=== PATIENT | male | born 1980 | race Caucasian/White ===

== ENCOUNTER 2020-08-01 17:32 | Emergency (ER) | payer OTHER, BC, SELFPAY ==
[2020-08-01 18:48] VITALS: BP 120/66; PULSE 78; RESP 18; TEMP 36.2; O2SAT 100
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
[2020-08-01] MEDS: SILVER SULFADIAZINE 1% CR 50 GM JAR (*BKC) 1 APPLIC TOPICAL (20:08)
[2020-08-01 20:42] VITALS: BP 146/93; PULSE 85; RESP 16; TEMP 36.9; O2SAT 100
== END 2020-08-01 20:44 | disposition home or self-care (01) ==
PROVIDERS: Emergency Provider Emergency Medicine; PCP Nurse Practitioner Family
DX: T54.3X1A Toxic effect of corrosive alkalis and alkali-like substances, accidental (unintentional), initial encounter (principal); T23.672A Corrosion of second degree of left wrist, initial encounter; T23.671A Corrosion of second degree of right wrist, initial encounter; T32.0 Corrosions involving less than 10% of body surface
CPT/HCPCS: 16020; 99283; A9270

== ENCOUNTER 2021-07-05 11:37 | Outpatient (CLI) | payer BC, SELFPAY ==
--- NOTE | ~2021-07-05 | XR_ITS ---
EXAMINATION: XR chest 2V 07/05/2021 12:15 INDICATION: Cough and shortness of breath PROCEDURE: 2 view chest COMPARISON: 05/18/2007 FINDINGS: The lungs are clear. The cardiomediastinal silhouette is within normal limits. There are no pleural effusions. There is no pneumothorax suspected. IMPRESSION: 1: NO ACUTE CARDIOPULMONARY DISEASE. Reviewed, dictated and finalized at location A.
== END 2021-07-05 11:38 ==
PROVIDERS: PCP Nurse Practitioner Family; Visit Provider Nurse Practitioner Family
DX: R05.9 Cough, unspecified (principal); R06.02 Shortness of breath
CPT/HCPCS: 71046

== ENCOUNTER 2024-08-12 08:22 | Outpatient (CLI) | payer BC, SELFPAY ==
--- NOTE | ~2024-08-12 | CT_ITS ---
EXAMINATION: CT abdomen pelvis wo/w con DATE: 08/12/2024 09:33 INDICATION: Hematuria. Left flank pain. TECHNIQUE: Computed tomography (CT) of the abdomen and pelvis was performed without and with intraven ous contrast using a total of 130 mL Omnipaque-350 intravenous contrast with a double-bolus technique for simultaneous opacification of the renal parenchyma and renal collecting system. Automated exposu re control and iterative reconstruction technique were employed. The dose-length product was 2807.84 mGy-cm. COMPARISON: CT abdomen 05/19/2007 FINDINGS: The visualized portions of the lung bases demonstrate minimal atelectasis. No pleural effusion. The h eart size is normal. No pericardial effusion. There is a 5 mm cyst in the liver. There are changes of cholecystectomy. The spleen, pancreas, and adrenal glands are normal. There are cysts in the kidneys measuring up to 8 mm on the left. There is a 2 mm stone in right kidney. There is a 3 mm stone in di stal left ureter. There is a 2 mm stone in left kidney. The ureters are well opacified by contrast. T he bladder is normal. The prostate is moderately enlarged. There are no dilated loops of bowel. The a ppendix is normal. There are no pathologically enlarged lymph nodes. There is no free intraperitoneal fluid. There is lumbar levoscoliosis and mild spondylosis. There are chronic bilateral L5 pars defec ts. There is 4 mm anterolisthesis of L5 on S1. There is mild chronic anterior wedging of multiple tho racic vertebral bodies. IMPRESSION: 1. 3 mm stone in distal left ureter. No hydronephrosis. 2. Bilateral nonobstructing kidney stones. Reviewed, dictated and finalized at location A. [employer]
[2024-08-12 09:09] LABS: Estimated Glomerular Filt Rate 55
[2024-08-12 10:23] LABS: Basophils Absolute Auto 0.2 K/mm3 (0.0-0.1); Eosinophils Absolute Auto 0.2 K/mm3 (0-0.3); Hematocrit 39.9 % (42.0-52.0); Hemoglobin 14.1 g/dL (14.0-18.0); Immature Granulocyte Absolute 0.05 K/mm3 (0.00-0.031); Immature Granulocyte Percent A 0.6 % (0-0.5); Lymphocytes Absolute Auto 1.93 K/mm3 (0.9-3.2); Lymphocytes Percent Auto 23.8 % (18.3-44.2); Mean Corpuscular HGB Conc 35.3 g/dl (32-36); Mean Corpuscular Hemoglobin 30.5 pg (26-34); Mean Corpuscular Volume 86.2 fl (80-100); Mean Platelet Volume 9.9 fl (7.4-10.4); Monocytes Absolute Auto 0.6 K/mm3 (0.1-0.6); Monocytes Percent Auto 7.3 % (2.6-8.5); Neutrophils Absolute Auto 5.1 K/mm3 (1.3-6.7); Neutrophils Percent Auto 63.3 % (45.5-73.1); Platelet Count Result 316 k/mm3 (150-375); Red Blood Count 4.63 M/mm3 (4.6-6.20); Red Cell Distribution Width 12.2 % (11.5-14.5); White Blood Count 8.1 K/mm3 (4.5-10.0)
[2024-08-12 10:33] LABS: Alanine Aminotransferase 22 U/L (6-50); Albumin Level 4.5 g/dL (3.5-5.1); Alkaline Phosphatase 80 U/L (38-126); Anion Gap 12 mmol/L (4-12); Aspartate Amino Transferase 28 U/L (17-59); Bilirubin,Total 0.3 mg/dL (0.2-1.3); Blood Urea Nitrogen 19 mg/dL (9-20); Calcium 9.8 mg/dL (8.4-10.2); Carbon Dioxide 26 mmol/L (22-30); Chloride 100 mmol/L (98-107); Cholesterol 208 mg/dL (0-200); Estimated Glomerular Filt Rate 60; Glucose 101 mg/dL (65-110); HDL Direct 36 mg/dL; Potassium 3.6 mmol/L (3.4-5.0); Sodium 138 mmol/L (137-145); Triglycerides 301 mg/dL (<150); Uric Acid 5.8 mg/dL (3.5-8.5)
[2024-08-12 10:37] LABS: Hemoglobin A1C 5.3 % (<5.7)
[2024-08-12 10:44] LABS: LDL Cholesterol Direct 113 mg/dL
[2024-08-12 11:03] LABS: Prostate Specific Antigen 1.1 ng/mL (< OR = 4.0)
[2024-08-12 11:39] LABS: Folic Acid > 20.0 ng/mL (2.76->20)
[2024-08-12 13:33] LABS: Vitamin D 25 Hydroxy 49.4 ng/mL
[2024-08-12 13:46] LABS: Thyroid Stimulating Hormone Reflex 0.868 uIU/mL (0.465-4.68)
== END 2024-08-12 08:23 | disposition home or self-care (01) ==
PROVIDERS: PCP Nurse Practitioner Family; Visit Provider Nurse Practitioner Family
DX: N20.1 Calculus of ureter (principal); N20.0 Calculus of kidney; E66.811 Obesity, class 1; E66.09 Other obesity due to excess calories; Z68.33 Body mass index [BMI] 33.0-33.9, adult; E55.9 Vitamin D deficiency, unspecified; Z12.5 Encounter for screening for malignant neoplasm of prostate; I10 Essential (primary) hypertension; F41.1 Generalized anxiety disorder
CPT/HCPCS: 36415; 74178; 80053; 80061; 82306; 82607; 82746; 83036; 83735; 84153; 84443; 84550; 85025; G0103; Q9967